=== PATIENT | female | born 1995 | race American Indian/Alaskan Native ===

== ENCOUNTER 2017-01-26 09:40 | Emergency (ER) | payer SELFPAY ==
[2017-01-26 09:48] VITALS: BP 141/83
[2017-01-26] MEDS ORDERED: LIDOCAINE VISCOUS 2% PO ONE (14:05)
--- NOTE | 2017-01-26 14:05 | Emergency Department Report ---
HPI - General Chief Complaint: Earache Time Seen by Provider: 01/26/17 13:24 - HPI HPI: This is a 21-year-old female presents to ED complaining of left ear aching times a week. Patient states about a week ago she started experiencing some clogged feeling in the ears. Patient denies any ear trauma. Patient states she has tried to put some peroxide and apple cider vinegar applied to the ear with no relief. Patient denies loss of hearing. Patient denies fever assess from the/running nose ED Past Medical Hx - Past Medical History Additional medical history: heat exhaustion - Social History Smoking Status: Never Smoker Substance Use Type: None - Medications Home Medications: Home Medications Medication Instructions Recorded Confirmed Last Taken Type Ondansetron [Zofran Odt] 4 mg PO Q8HR PRN #12 tab.rapdis 05/06/15 Unknown Rx Carbamide Peroxide [Ear Wax 1 - 2 drops OT BID #15 ml 01/26/17 Unknown Rx Removal] Ibuprofen [Motrin 600 MG tab] 600 mg PO Q8H PRN #20 tablet 01/26/17 Unknown Rx Ofloxacin 0.3% [Floxin Otic] 1 drop OTIC DAILY #1 bottle 01/26/17 Unknown Rx ED Review of Systems ROS: Stated complaint: EARACHE Other details as noted in HPI Constitutional: denies: chills, fever Eyes: denies: eye pain, eye discharge, vision change ENT: denies: ear pain, throat pain Respiratory: denies: cough, shortness of breath, wheezing Cardiovascular: denies: chest pain, palpitations Endocrine: no symptoms reported Gastrointestinal: denies: abdominal pain, nausea, diarrhea Genitourinary: denies: urgency, dysuria, discharge Musculoskeletal: denies: back pain, joint swelling, arthralgia Skin: denies: rash, lesions Neurological: denies: headache, weakness, paresthesias Psychiatric: denies: anxiety, depression Hematological/Lymphatic: denies: easy bleeding, easy bruising Physical Exam - Physical Exam Vital Signs: Vital Signs 01/26/17 09:47 Temperature 98.4 F Pulse Rate 64 Respiratory 16 Rate Blood Pressure 141/83 [Right] O2 Sat by Pulse 99 Oximetry Physical Exam: GENERAL: Alert and oriented x3, no apparent distress, Normal Gait, atraumatic. EARS: symetrical, atraumatic, non tender, ear clogged with brown thick moderate cerumen bilat , tympanic membrance not visualized. gross auditory nml bilaterally. NOSE: Nose symetrical, Nontender,Nares appeared normal. MOUTH:Mouth is well hydrated and without lesions. Tonsils nonerythematous or swollen, Uvula midline, Tongue not elevated. Mucous membranes are moist. Posterior pharynx clear, no exudate or lesions. Patent airways. NECK: Supple. Non edematous, No carotid bruits. No lymphadenopathy or thyromegaly. No C-spine tenderness LUNGS: Symetrical with respiration, No wheezing, no rales or crackles, CTAB. HEART: S1, S2 present, regular rate and rhythm without murmur, no rubs, no gallops. Non tender to palpation SKIN: Warm and dry, No lesions, No ulceration or induration present. ED Course Vital Signs 01/26/17 09:47 Temperature 98.4 F Pulse Rate 64 Respiratory 16 Rate Blood Pressure 141/83 [Right] O2 Sat by Pulse 99 Oximetry ED Medical Decision Making - Medical Decision Making 21-year-old female presents with a quadrants impaction bilateral ED course: Topical lidocaine with peroxide was applied to both ears bilaterally for 20 minutes Ears were then flushed with about 200 mL of normal saline each bilaterally. Brown biopsies Cerumenex spelled from ears Tympanic membranes visualized bilaterally, nonerythematous, no bulging, patient tolerated procedure well and without any complications. Discussed patient to use here where she will drops twice a day Discussed to follow up with primary care physician. Vital signs normal patient is in no acute distress. Critical care attestation.: If time is entered above; I have spent that time in minutes in the direct care of this critically ill patient, excluding procedure time. ED Disposition Clinical Impression: Excessive cerumen in both ear canals Disposition: DC-01 TO HOME OR SELFCARE Is pt being admited?: No Does the pt Need Aspirin: No Condition: Stable Instructions: Carbamide Peroxide (Into the ear), Cerumen Impaction (ED) Prescriptions: Carbamide Peroxide [Ear Wax Removal] 1 - 2 drops OT BID #15 ml Ibuprofen [Motrin 600 MG tab] 600 mg PO Q8H PRN #20 tablet PRN Reason: Pain Ofloxacin 0.3% [Floxin Otic] 1 drop OTIC DAILY #1 bottle Referrals: PRIMARY CARE, [Primary Care Provider] - 3-5 Days TOÑO MANZO MD [Staff Physician] - 3-5 Days Forms: Work/School Release Form(ED) Time of Disposition: 14:19
[2017-01-26] MEDS ORDERED: HYDROGEN PEROXIDE TP ONE (14:06)
== END 2017-01-26 16:33 | disposition home or self-care (01) ==
LOC: ED 09:40
DX: H61.23 Impacted cerumen, bilateral (principal)

== ENCOUNTER 2017-04-07 00:01 | Emergency (ER) | payer SELFPAY ==
[2017-04-07 00:06] VITALS: BP 144/73
== END 2017-04-07 05:48 | disposition left against medical advice (07) ==
LOC: ED 00:01
DX: M79.601 Pain in right arm (principal); Z53.21 Procedure and treatment not carried out due to patient leaving prior to being seen by health care provider; V89.2XXA Person injured in unspecified motor-vehicle accident, traffic, initial encounter; Y93.89 Activity, other specified; Y99.8 Other external cause status; Y92.410 Unspecified street and highway as the place of occurrence of the external cause

== ENCOUNTER 2019-02-09 11:30 | Emergency (ER) | payer SELFPAY ==
[2019-02-09 11:40] VITALS: BP 134/75
--- NOTE | 2019-02-09 11:53 | Event Note ---
ED Screening Note Date of service: 02/09/19 Time: 11:52 ED Screening Note: 23 y/o female comes in for abscess to left buttocks. This initial assessment/diagnostic orders/clinical plan/treatment(s) is/are subject to change based on patients health status, clinical progression and re-assessment by fellow clinical providers in the ED. Further treatment and workup at subsequent clinical providers discretion. Patient/guardian urged not to elope from the ED as their condition may be serious if not clinically assessed and managed. Initial orders include:
--- NOTE | 2019-02-09 13:06 | Emergency Department Report ---
Abscess Boil HPI - HPI Chief Complaint: Skin/Abscess/Foreign Body Stated Complaint: PAINFUL CYST Time Seen by Provider: 02/09/19 11:52 Duration: >1 Week Location: Other Severity: Mild History: Yes Pain, Yes Previous History, No Fever, No Purulent Drainage, No Numbness, No Foreign Body, No Insect Bite HPI: 23 YO FEMALE COMES TO ER WITH ANOTHER ABSCESS OF LEFT BUTTOCKS. SHE STATES SHE GETS THEM OFTEN; BUT ONLY RECENTLY AND DOES NOT KNOW WHY. SHE IS AMBULATORY AND NONTOXIC. NO FEVER. AND SITTING WITHOUT COMPLAINT OF PAIN Home Medications: Previous Rx's Medication Instructions Recorded Last Taken Type Mupirocin Calcium [Bactroban Nasal 1 gm NS BID #1 tube 02/09/19 Unknown Rx 2%] predniSONE [Deltasone] 20 mg PO DAILY #5 tablet 02/09/19 Unknown Rx Allergies/Adverse Reactions: Allergies Allergy/AdvReac Type Severity Reaction Status Date / Time No Known Allergies Allergy Verified 04/07/17 00:10 ED Review of Systems ROS: Stated complaint: PAINFUL CYST Other details as noted in HPI Comment: All other systems reviewed and negative ED Past Medical Hx - Past Medical History Previous Medical History?: Yes Additional medical history: heat exhaustion- BOILS - Surgical History Past Surgical History?: No - Family History Family history: no significant - Social History Smoking Status: Never Smoker Substance Use Type: None - Medications Home Medications: Home Medications Medication Instructions Recorded Confirmed Last Taken Type Mupirocin Calcium [Bactroban Nasal 1 gm NS BID #1 tube 02/09/19 Unknown Rx 2%] predniSONE [Deltasone] 20 mg PO DAILY #5 tablet 02/09/19 Unknown Rx ED Abscess Boil Physical Exam - Exam General: Vital signs noted. No distress. Alert and acting appropriately. Size: 1 cm Exam: Yes Normal Neurologic Exam, Yes Normal Circulation, No Tenderness, No Fluc tuance, No Surrounding Cellulites/Erythema, No Lymphangitis, No Crepitation, No Heart Murmur ED Course Vital Signs 02/09/19 11:39 Temperature 98.9 F Pulse Rate 96 H Respiratory 16 Rate Blood Pressure 134/75 [Left] O2 Sat by Pulse 98 Oximetry Critical care attestation.: If time is entered above; I have spent that time in minutes in the direct care of this critically ill patient, excluding procedure time. ED Medical Decision Making - Medical Decision Making NO NEED FOR I/D LESS THAN 2 CM WITHOUT FLAT. NO SIGN. CELLULITIS PT EDUCATED ON SKIN CARE DC HOME WITH DC PLAN OF CARE AND DERM FOLLOW UP Vital Signs 02/09/19 11:39 Temperature 98.9 F Pulse Rate 96 H Respiratory 16 Rate Blood Pressure 134/75 [Left] O2 Sat by Pulse 98 Oximetry - Differential Diagnosis A/C ABSCESS ED Disposition Clinical Impression: Abscess Disposition: DC-01 TO HOME OR SELFCARE Is pt being admited?: No Does the pt Need Aspirin: No Condition: Stable Instructions: Abscess (ED) Additional Instructions: EPSOM SALT SOAKS HYGIENE WE DISCUSSED BOIL PRODUCTS THROW AWAY THINGS THAT HAVE TOUCHED SKIN; LIKE RAZORS FOLLOW UP DERM MEDS ORDERED TODAY Prescriptions: Mupirocin Calcium [Bactroban Nasal 2%] 1 gm NS BID #1 tube predniSONE [Deltasone] 20 mg PO DAILY #5 tablet Referrals: ESTRELLA BILLY MD [Referring] - 3-5 Days MARITZA KOO MD [Staff Physician] - 3-5 Days NANDA POE MD [Staff Physician] - 3-5 Days Time of Disposition: 13:04
== END 2019-02-09 13:12 | disposition home or self-care (01) ==
LOC: ED 11:30
DX: L02.416 Cutaneous abscess of left lower limb (principal)

== ENCOUNTER 2019-06-25 15:12 | Emergency (ER) | payer SELFPAY ==
[2019-06-25 16:01] VITALS: BP 153/77
--- NOTE | 2019-06-25 16:04 | Emergency Department Report ---
Chief Complaint: Extremity Injury, Lower Stated Complaint: RIGHT HAND PAIN Time Seen by Provider: 06/25/19 16:00 - HPI History of Present Illness: pt is a 23 yo female who states she has been having right wrist that began a couple of weeks ago no fall or injury states she does alot of repetitive movements at work no numbness or weakness PMHx none no allergies to meds VSS on exam: no ttp of the wrist, no bony ttp, no deformity, no edema, no ecchymosis, no snuffbox tenderness, no erythema, no increased warmth, FROM of the right wrist, hand and digits, neurovascularly intact Patient has had no acute traumatic injury No abnormality on physical examination Could be related to arthritis versus carpal tunnel Discussed supportive treatment and symptomatic care with patient Patient referred to an orthopedic doctor Patient is presenting with a nonmedical emergency at this time, medical screening examination performed and there is no threat to life or limb at this time Discussed strict return precautions with patient MSE screening note: Focused history and physical exam performed. ED Disposition for MSE Clinical Impression: Right wrist pain Disposition: Z- MED SCREENING EXAM-LEFT Is pt being admited?: No Does the pt Need Aspirin: No Condition: Stable Instructions: Arthralgia (ED) Additional Instructions: may take ibuprofen or naproxen as needed for discomfort. may use ice for 15 minutes at a time. may wear a wrist wrap while working, do not wear while sleeping or not doing activities. follow up with an orthopedic doctor if symptoms are not improving. return to the emergency room for any new or worsening symptoms. Referrals: [facility] [Provider Group] - 3-5 Days VADIM CRUZ MD [Staff Physician] - 3-5 Days Time of Disposition: 16:04 Print Language: [id number]
== END 2019-06-25 16:34 | disposition left against medical advice (07) ==
LOC: ED 15:12
DX: M25.531 Pain in right wrist (principal)
CPT/HCPCS: 99282